=== PATIENT | female | born 1975 | race Caucasian/White ===

== ENCOUNTER → 2017-07-11 | Outpatient (CLI) | payer OTHER ==
--- NOTE | 2017-07-11 13:18 | REP ---
RIGHT KNEE SERIES: Five views right knee performed. There is evidence of prior ACL reconstruction with central tunneling in the distal femur and proximal tibia for an ACL graft. There is no acute fracture or dislocation. Minor medial joint space narrowing as well as narrowing of the patellofemoral joint is noted. There may be a small effusion. IMPRESSION: Evidence of prior ACL reconstruction. Very mild degenerative changes. Possible small joint effusion. Signed by Javed Layne MD 07/11/2017 04:59 P
== END ==
LOC: M LRY 08:12
PROVIDERS: ATTEND Family Medicine
DX: M25.561 Pain in right knee (principal)
CPT/HCPCS: 73564; G0463

== ENCOUNTER → 2017-08-12 | Outpatient (CLI) | payer OTHER | LOC: M LRY 14:57 | PROVIDERS: ATTEND Nurse Practitioner Family | DX: M25.531 Pain in right wrist (principal) ==

== ENCOUNTER → 2017-09-02 | Outpatient (CLI) | payer OTHER ==
--- NOTE | 2017-09-03 01:17 | REP ---
Clinical: Pain Technique: AP, lateral, bilateral oblique views right wrist . Findings: The carpal bones, surrounding osseous structures, soft tissues, and joint spaces are normal. No significant degenerative changes are appreciated. There is no evidence for acute fracture or dislocation. No subcutaneous emphysema or radiodense foreign body. Impression: Normal wrist series. No acute fracture or dislocation Signed by Noel Villa MD 09/03/2017 01:08 A
== END ==
LOC: M LRY 11:00
PROVIDERS: ATTEND Family Medicine
DX: M25.531 Pain in right wrist (principal)
CPT/HCPCS: 73110; G0463

== ENCOUNTER → 2017-09-06 | Outpatient (CLI) | payer OTHER ==
--- NOTE | 2017-09-06 10:27 | REP ---
MRI right knee without contrast: History: Medial right knee pain. The patient is status post medial meniscal repair. Comparison knee radiographs July 11, 2017. No comparison MR study available. Technique: Sagittal, axial and coronal imaging planes utilized. T1, proton density and T2-weighted scans were obtained with and without fat saturation. MRI findings: There is a small to moderate joint effusion. No observable Barker's cyst. Postoperative changes including tibial and distal femoral bony tunnels for the reconstructed ACL are seen. The interosseous and transsynovial portion of the tendon graft appear intact and in good position. Posterior cruciate ligament is unremarkable. Patellar and quadriceps tendons appear intact. There is no evidence of medial or lateral collateral ligament disruption. No evidence of loose body seen. There is central patellar chondromalacia moderate in degree of underlying marrow edema and partial thickness articular cartilage irregularity and thinning. A small suprapatellar plica is seen superiorly. No medial or lateral meniscal tear is seen. The posterior horn of the medial meniscus is approximately the same size as the anterior horn on sagittal images suggesting the possibility of prior meniscectomy. No displaced meniscal material is appreciated. There is a minimal zone of marrow edema in the posterior tibial metaphysis. Impression: Status post ACL reconstruction. Moderate chondromalacia patella centrally. Question post partial medial meniscectomy changes. No other abnormality. Signed by Feng Baker MD 09/06/2017 03:08 P
== END ==
LOC: M RAD 07:40
PROVIDERS: ATTEND Family Medicine
DX: M25.561 Pain in right knee (principal)